=== PATIENT | male | born 1960 | race African-American/Black ===

== ENCOUNTER 2021-02-25 12:55 | Outpatient (RCR) | payer OTHER, SELFPAY ==
--- NOTE | 2021-02-25 15:33 | PCPTNOTE ---
Patient:Mike Cronin Date of :1960 Thank you for referring this Mike to [facility]. The patient has been evaluated for wheelchair seating and recommendations have been made, with assistance of the DME provider, [employer], present. The findings have been scanned into the patient's EMR. Please review, sign, date and return this recognition of care provided. I agree with and certify that the following plan for DME equipment is medically necessary. Jessica Albright, KANDY date
== END 2021-03-02 14:42 | disposition home or self-care (01) ==
LOC: ANHPT 12:55
PROVIDERS: PCP Nurse Practitioner Family; Referring Provider Nurse Practitioner Family; Visit Provider Nurse Practitioner Family
DX: I63.9 Cerebral infarction, unspecified (principal)
CPT/HCPCS: 99199